=== PATIENT | male | born 1955 | race Two or more races ===

== ENCOUNTER 2021-07-15 13:27 | Emergency (ER) | payer OTHER ==
[~2021-07-15] VITALS: Ht 170.2 cm; Wt 68.0 kg
== END 2021-07-15 17:21 | disposition home or self-care (01) ==
LOC: ER 13:27
DX: S12.000A Unspecified displaced fracture of first cervical vertebra, initial encounter for closed fracture (principal); W18.30XA Fall on same level, unspecified, initial encounter; Y92.89 Other specified places as the place of occurrence of the external cause